=== PATIENT | female | born 1955 | race Caucasian/White ===

== ENCOUNTER → 2022-05-08 | Outpatient (CLI) | payer MEDICARE ==
[2022-05-08 09:07] LABS: BASO # 0.08 K/mm3 (0.02-0.10); EOS # 0.54 K/mm3 (0.04-0.40); EOS % 7.3 % (1.0-5.0); HEMATOCRIT 38.8 % (37.0-47.0); HEMOGLOBIN 12.4 g/dL (12.5-16.0); MEAN CELL VOLUME 101 fl (78-100); MEAN CORPUSCULAR HEMOGLOBIN 32 pg (27-31); MEAN CORPUSCULAR HGB CONC 32 g/dL (33-37); MEAN PLATELET VOLUME 10.3 fl (7.4-10.4); NEU # 3.78 K/mm3 (1.40-6.50); PLATELET COUNT 261 K/mm3 (130-400); RED BLOOD COUNT 3.86 M/mm3 (4.10-5.30); RED CELL DISTRIBUTION WIDTH 13.6 % (11.5-14.5); WHITE BLOOD COUNT 7.4 K/mm3 (4.8-10.8)
[2022-05-08 09:16] LABS: ALBUMIN 3.9 g/dL (3.4-4.8); POTASSIUM 4.4 mmol/L (3.5-5.1)
[2022-05-08 09:17] LABS: CALCIUM 9.3 mg/dL (8.3-10.5)
[2022-05-08 09:18] LABS: TOTAL PROTEIN 6.9 g/dL (6.2-8.1)
[2022-05-08 09:20] LABS: TOTAL BILIRUBIN 0.5 mg/dL (0.2-1.2)
[2022-05-08 09:42] LABS: D-DIMER 1.47 mg/L FEU (0.15-0.50)
== END ==
LOC: LAB 08:53 → VAS 08:53
PROVIDERS: Nurse Practitioner
DX: M79.662 Pain in left lower leg (principal); R22.40 Localized swelling, mass and lump, unspecified lower limb; Z98.890 Other specified postprocedural states